=== PATIENT | male | born 1945 | race Caucasian/White ===

== ENCOUNTER 2017-11-12 12:58 | Outpatient (CLI) | payer MEDICARE ==
[~2017-11-12] VITALS: Ht 177.8 cm; Wt 81.8 kg
[2017-11-12 13:41] VITALS: Ht 177.8 cm; Wt 81.8 kg
== END 2017-11-12 14:05 | disposition home or self-care (01) ==
LOC: D.OPS 12:58
DX: M81.0 Age-related osteoporosis without current pathological fracture (principal); Z01.812 Encounter for preprocedural laboratory examination

== ENCOUNTER 2018-05-27 08:32 | Outpatient (CLI) | payer MEDICARE ==
[~2018-05-27] VITALS: Ht 177.8 cm; Wt 81.8 kg
[2018-05-27 09:39] VITALS: BP 135/68; Ht 177.8 cm; Wt 81.8 kg
== END 2018-05-27 09:50 | disposition home or self-care (01) ==
LOC: D.OPS 08:32
PROVIDERS: ATTEND Family Medicine
DX: M81.0 Age-related osteoporosis without current pathological fracture (principal)

== ENCOUNTER 2018-12-02 11:55 | Outpatient (CLI) | payer MEDICARE ==
[~2018-12-02] VITALS: Ht 177.8 cm; Wt 81.8 kg
[2018-12-02 12:36] VITALS: Ht 177.8 cm; Wt 81.8 kg
== END 2018-12-02 12:50 | disposition home or self-care (01) ==
LOC: D.OPS 11:55
PROVIDERS: ATTEND Family Medicine
DX: M81.0 Age-related osteoporosis without current pathological fracture (principal)

== ENCOUNTER 2019-10-13 12:36 | Outpatient (CLI) | payer OTHER ==
[~2019-10-13] VITALS: Ht 177.8 cm; Wt 84.1 kg
[2019-10-13 13:32] VITALS: Ht 177.8 cm; Wt 84.1 kg
== END 2019-10-13 13:40 | disposition home or self-care (01) ==
LOC: D.OPS 12:36
PROVIDERS: ATTEND Family Medicine
DX: M81.0 Age-related osteoporosis without current pathological fracture (principal)

== ENCOUNTER 2020-05-24 12:28 | Outpatient (CLI) | payer OTHER ==
[~2020-05-24] VITALS: Ht 177.8 cm; Wt 81.6 kg
[2020-05-24 13:12] VITALS: Ht 177.8 cm; Wt 81.6 kg
== END 2020-05-24 13:15 | disposition home or self-care (01) ==
LOC: D.OPS 12:28
PROVIDERS: ATTEND Family Medicine
DX: M81.0 Age-related osteoporosis without current pathological fracture (principal)